=== PATIENT | male | born 1975 | race Caucasian/White ===

== ENCOUNTER 2021-07-24 11:17 | Inpatient (IN) | payer OTHER ==
[~2021-07-24] VITALS: Ht 180.3 cm; Wt 145.1 kg
[2021-07-24 11:22] VITALS: BP 124/68
[2021-07-24 13:10] LABS: ABSOLUTE LYMPHOCYTES 1.2 thou/uL (0.8-5.3); ABSOLUTE MONOCYTES 0.8 thou/uL (0.0-1.2); ABSOLUTE NEUTROPHILS 3.2 thou/uL (1.6-8.1); BASOPHILS 0.7 %; HEMATOCRIT 50.8 % (42.0-52.0); HEMOGLOBIN 17.2 gm/dL (14.0-18.0); LYMPHOCYTES 23.1 %; MCH 29.9 pg (26.0-34.0); MCHC 33.9 g/dL (28.0-37.0); MCV 88.3 fL (80.0-100.0); MONOCYTES 15.3 %; MPV 8.2 fl. (7.2-11.1); NUCLEATED RBCS 0 /100WBC; PLATELET COUNT* 152 thou/uL (150-400); POLYS 60.9 %; RBC 5.75 mil/uL (4.50-6.00); RDW-CV 14.2 % (10.5-14.5); WBC 5.3 thou/uL (4.0-11.0)
[2021-07-24 13:15] LABS: CALCIUM 7.7 mg/dL (8.5-10.1); CREATININE 0.9 mg/dL (0.6-1.3); POTASSIUM 4.2 mmol/L (3.5-5.1)
--- NOTE | 2021-07-24 14:20 | NUR ---
Dr. Goodwin ask for an RT ambulation oxygen saturation test. Patient was ambulated approximately 50 feet. Pt. became dizzy and oxygen saturation dropped to 81%..
--- NOTE | 2021-07-24 14:21 | EKG ---
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 : 1975 Requested By: Sarwat Goodwin Order Number: [id number] MD: Sp Sarmiento Measurements Intervals Aniwa Rate: 83 P: 74 OR: 166 QRS: 93 QRSD: 96 T: 51 QT: 355 QTc: 418 Interpretive Statements Sinus rhythm Left atrial enlargement Borderline right axis deviation ST elev, probable normal early repol pattern Baseline wander in lead(s) II,III,aVL,aVF No previous ECG available for comparison Electronically Signed On 07-24-2021 14:20:49 [employer] by Sp Sarmiento [email or web address] <ELECTRONICALLY SIGNED> By: Sp Sarmiento MD, [facility] 07/24/21 1420 1302 1302 Sp Sarmiento MD, [facility] /EPI
[2021-07-24 20:24] VITALS: BP 132/76
[2021-07-25] VITALS (7 sets, daily range): BP systolic 108–140; BP diastolic 38–76
[2021-07-25 09:13] LABS: BE 0.2 mmol/L (-2 to +3); PO2 62.5 mmHg (75.0-100.0); pH 7.389 (7.340-7.450)
[2021-07-25 09:58] LABS: ABSOLUTE MONOCYTES 0.3 thou/uL (0.0-1.2); ABSOLUTE NEUTROPHILS 4.4 thou/uL (1.6-8.1); BASOPHILS 0.3 %; HEMATOCRIT 50.3 % (42.0-52.0); HEMOGLOBIN 16.9 gm/dL (14.0-18.0); LYMPHOCYTES 16.9 %; MCH 30.1 pg (26.0-34.0); MCHC 33.7 g/dL (28.0-37.0); MCV 89.3 fL (80.0-100.0); MONOCYTES 5.4 %; MPV 8.1 fl. (7.2-11.1); NUCLEATED RBCS 0 /100WBC; PLATELET COUNT* 178 thou/uL (150-400); POLYS 77.4 %; RBC 5.63 mil/uL (4.50-6.00); RDW-CV 14.2 % (10.5-14.5); WBC 5.7 thou/uL (4.0-11.0)
[2021-07-25 10:02] LABS: ALBUMIN 2.6 g/dL (3.4-5.0); CALCIUM 7.5 mg/dL (8.5-10.1); CREATININE 0.8 mg/dL (0.6-1.3); MAGNESIUM 2.1 mg/dL (1.8-2.4); PHOSPHORUS* 3.3 mg/dL (2.5-4.9); POTASSIUM 4.1 mmol/L (3.5-5.1); TOTAL BILIRUBIN 0.3 mg/dL (<0.1-1.0); TOTAL PROTEIN 6.8 g/dL (6.4-8.2)
[2021-07-25 10:06] LABS: PROTIME 10.3 Seconds (9.20-11.50)
[2021-07-26 00:01] VITALS: BP 116/67
--- NOTE | 2021-07-26 03:10 | NUR ---
ASSUMED CARE OF PT AT 2024. PT IS ALERT AND ORIENTED. VSS. PERRLA. NO COMPLAINTS OF PAIN. PT WAS ON 6 LITERS O2. RESPIRATIONS ARE LABORED. PT IS NOW ON BIPAP AND TOLERATING WELL. PT IS IN SINUS RYTHM ON THE TELEMETRY. PT IS RESTING COMFORTABLY IN BED. RESPIRATIONS ARE EVEN AND NONLABORED. WILL CONTINUE TO MONITOR PT.
[2021-07-26 04:00] VITALS: BP 114/60
[2021-07-26 05:46] LABS: ABSOLUTE LYMPHOCYTES 0.9 thou/uL (0.8-5.3); ABSOLUTE MONOCYTES 0.5 thou/uL (0.0-1.2); ABSOLUTE NEUTROPHILS 6.7 thou/uL (1.6-8.1); BASOPHILS 0.2 %; HEMATOCRIT 50.4 % (42.0-52.0); HEMOGLOBIN 16.7 gm/dL (14.0-18.0); LYMPHOCYTES 10.8 %; MCH 29.9 pg (26.0-34.0); MCHC 33.2 g/dL (28.0-37.0); MCV 90.2 fL (80.0-100.0); MPV 8.6 fl. (7.2-11.1); NUCLEATED RBCS 0 /100WBC; PLATELET COUNT* 206 thou/uL (150-400); RBC 5.59 mil/uL (4.50-6.00); RDW-CV 14.2 % (10.5-14.5)
[2021-07-26 06:06] LABS: ALBUMIN 2.6 g/dL (3.4-5.0); CALCIUM 7.8 mg/dL (8.5-10.1); CREATININE 0.8 mg/dL (0.6-1.3); MAGNESIUM 2.3 mg/dL (1.8-2.4); PHOSPHORUS* 3.6 mg/dL (2.5-4.9); POTASSIUM 3.7 mmol/L (3.5-5.1); TOTAL BILIRUBIN 0.3 mg/dL (<0.1-1.0); TOTAL PROTEIN 6.8 g/dL (6.4-8.2)
[2021-07-26 06:09] LABS: LIPASE 140 U/L (73-393); TRIGLYCERIDE 64 mg/dL (<150)
[2021-07-26 08:00] VITALS: BP 129/64
[2021-07-26 09:29] LABS: BE 2.7 mmol/L (-2 to +3); PCO2 40.7 mmHg (35.0-45.0); pH 7.441 (7.340-7.450)
[2021-07-26 09:31] LABS: PO2 55.8 mmHg (75.0-100.0)
[2021-07-26 12:00] VITALS: BP 129/63
--- NOTE | 2021-07-26 13:25 | CON ---
[address] [address] CONSULTATION Name: YOGESH MARTINEZ Room: [address] IN [facility].#: [id number] Admission: 07/24/21 Attend Phys: Stephany Monique Discharge: Date of : 73 Report #: [id number] THIS REPORT FOR: cc: VENICE - No family physician/PCP FAM - No family physician/PCP Conner Oleary MD ~ DATE OF CONSULTATION: 07/25/2021 REQUESTING PHYSICIAN: Dr. Bernard. INDICATION FOR CONSULTATION: Acute hypoxemic respiratory failure secondary to COVID-19. HISTORY OF PRESENT ILLNESS: A 45-year-old gentleman with past medical history is as mentioned below. He is an active smoker. He says he drinks heavily over the weekends; however, does not drink alcohol during the week. He appears to have previously undiagnosed COPD as well as obstructive sleep apnea, both of these diagnoses, however are not on the chart. He has not been vaccinated for COVID-19. The patient has now presented with body aches as well as shortness of breath for about 5 days' duration. He also had a cough, sputum; however, has been clear. He has had some chest pain with respiration and coughing. There is mild swelling of lower extremities. He does not have upper respiratory complaints. REVIEW OF SYSTEMS: For 12 points is negative except as mentioned above. PAST MEDICAL HISTORY: Obesity, body mass index is 45. SOCIAL HISTORY: He is an active smoker, smokes a pack or more a day. Still has a history of heavy alcohol intake. He states he drinks only once on Saturdays. He does not drink alcohol the rest of the week. Also, has a history of THC use. ALLERGIES: No known drug allergies. FAMILY HISTORY: No pertinent family history. CURRENT MEDICATIONS: List in [employer] reviewed. HOME MEDICATIONS: No known medications. PHYSICAL EXAMINATION: GENERAL: He is alert, awake and oriented. VITAL SIGNS: In the record. These are reviewed. He is currently on 6 liters nasal cannula. Body mass index is 45[place] [address] CONSULTATION Name: YOGESH MARTINEZ Room: [address] IN [facility]#: [id number] Admission: 07/24/21 Attend Phys: Stephany Monique Discharge: Date of : 73 Report #: [id number] HEENT: Head is normocephalic and atraumatic. Pupils are equal and reactive. There is no throat erythema. He has a narrow airway. NECK: Does not show raised JVP, asymmetry, mass or lymph nodes. CHEST: Symmetrical expansion on inspection and palpation. On auscultation, breath sounds are bilaterally equal, decreased. Expirations are prolonged. There were significant expiratory wheezes heard bilaterally. HEART: Regular. There is no murmur. ABDOMEN: Soft and nontender. EXTREMITIES: Lower extremities, 1+ edema, no calf tenderness. SKIN: Dry and intact. NEUROLOGIC: Moves all extremities bilaterally equally and spontaneously with no focal deficit identified. LABORATORY DATA: Chest x-ray and CTA chest are in [facility] and these are reviewed. ASSESSMENT AND PLAN: 1. Acute hypoxemic respiratory failure secondary to COVID-19. He appears to have underlying obstructive sleep apnea. Therefore, I would go ahead and recommend BiPAP while asleep. Avoid supine sleep, prone position is preferred. 2. Suspected COVID-19. He is on dexamethasone, we will continue. See further discussion regarding the steroid dose as below. He also received Actemra. I also agree. Will also check Influenza swab and viral respiratory panel with it and is on remdesivir. I also agree with the same. We will follow LFTs. 3. Chronic obstructive pulmonary disease exacerbation/bronchospasm. He does appear to be actively bronchospastic. I ordered a dose of Solu-Medrol earlier. It does not appear that it was administered. I would avoid and reorder. He is on 10 mg b.i.d., dexamethasone. We will continue the same. Ordered DuoNeb q.i.d. in addition to p.r.n. albuterol. 4. Pulmonary infiltrates. Primarily, these appear to be secondary to a viral infection, likely COVID-19; however, continuing broad-spectrum antibiotics to cover for secondary bacterial infections appears to be reasonable. 5. Fluid overload. I gave him a dose of Lasix today. We will reassess tomorrow and consider more Lasix. He does appear to have fluid overload. 6. Morbid obesity/suspected obstructive sleep apnea. See discussion above. 7. Deep vein thrombosis prophylaxis. I will increase his Lovenox dose to intermediate dose. 8. Gastrointestinal prophylaxis. He is on Protonix. 9. Clostridium difficile prophylaxis. Lactinex. 10. History of alcohol use. Considering that both anxiety secondary to alcohol withdrawal as well as worsening respiratory failure would have similar symptoms, [facility] [place] [facility] [address] [place] [address] CONSULTATION Name: YOGESH MARTINEZ Room: [address] IN M.R.#: [id number] Admission: 07/24/21 Attend Phys: Stephany Monique Discharge: Date of : 73 Report #: [id number] I recommend against using CIWA protocol for this patient. Also, note that if his statement that he only drinks once a week is correct, then he may not withdraw from alcohol regardless cautious use of some Ativan will be reasonable. I did order thiamine and folate for him as well. 11. History of smoking. I did not start a nicotine patch at this time as it is late in the day and it is a stimulant. If needed, then starting a nicotine patch in the morning to reduce nicotine craving will be reasonable. 12. Hyperglycemia. Insulin sliding scale. Thanks for this consultation. <ELECTRONICALLY SIGNED> By: Conner Oleary MD 07/26/21 1325 31 [id number] Oleary MD /nt
[2021-07-26 16:11] VITALS: BP 123/61
[2021-07-26 20:00] VITALS: BP 130/61
[2021-07-27] VITALS: BP 116/56
[2021-07-27 04:00] VITALS: BP 99/45
[2021-07-27 04:52] LABS: HEMATOCRIT 50.1 % (42.0-52.0); HEMOGLOBIN 16.4 gm/dL (14.0-18.0); MCH 29.8 pg (26.0-34.0); MCHC 32.8 g/dL (28.0-37.0); MPV 8.1 fl. (7.2-11.1); NUCLEATED RBCS 0 /100WBC; PLATELET COUNT* 247 thou/uL (150-400); RBC 5.51 mil/uL (4.50-6.00); RDW-CV 14.2 % (10.5-14.5); WBC 15.2 thou/uL (4.0-11.0)
[2021-07-27 05:15] LABS: INFLUENZA A ANTIGEN Negative (Negative); INFLUENZA B ANTIGEN Negative (Negative)
[2021-07-27 05:19] LABS: ALBUMIN 2.8 g/dL (3.4-5.0); CALCIUM 7.9 mg/dL (8.5-10.1); CREATININE 0.8 mg/dL (0.6-1.3); MAGNESIUM 2.4 mg/dL (1.8-2.4); POTASSIUM 4.1 mmol/L (3.5-5.1); TOTAL BILIRUBIN 0.3 mg/dL (<0.1-1.0); TOTAL PROTEIN 6.3 g/dL (6.4-8.2)
--- NOTE | 2021-07-27 06:28 | NUR ---
ASSUMED CARE OF PT AFTER REPORT AT 1930. PT A&OX4. VSS. PHYSICAL ASSESSMENT COMPLETED AND CHARTED. PT ON O2 AT 7L NC/BIPAP AT HS-REFUSED BIPAP LAST NIGHT. PT TRACING SR ON TELE. PT UPADLIB TO RESTROOM. RVP, FLU SWAB & UA SENT TO LAB. DENIES PAIN. PT ABLE TO SLEEP WELL ON BED. CALL LIGHT WITHIN REACH.
[2021-07-27 07:54] LABS: ABSOLUTE LYMPHOCYTES 0.2 thou/uL (0.8-5.3); ABSOLUTE MONOCYTES 0.2 thou/uL (0.0-1.2); ABSOLUTE NEUTROPHILS 14.9 thou/uL (1.6-8.1); PLATELET ESTIMATE ADEQUATE
[2021-07-27 08:06] VITALS: BP 131/71
--- NOTE | 2021-07-27 12:58 | NUR ---
Nutrition: Pt admitted to COVID unit. H/o DM, COPD, tobacco use, ETOH. Consult received for DM. Pt on regular diet - RD will add CHO count to diet order. Wt: 320#. Meds: insulin, vit C, folic acid, thiamine. +BM yday. Labs: BG 157-217, alb 2.8, prealb 14.1. Excessive CHO intake R/T diet order AEB no CHO restriction on diet order, labs above. GOALS: good intake of CHO controlled diet, tight BG control. Consider mild nutrition risk at this time.
--- NOTE | 2021-07-27 14:02 | 2DMMODE ---
[place] [address] 2 D/M-MODE ECHOCARDIOGRAM Name: YOGESH MARTINEZ Room: [address] ADM IN Stephany.Maninder.#: [id number] Admission: 07/24/21 Attend Phys: Xavier Xiao Discharge: Date of : 73 Date of Service: 07/27/21 1401 Report #: [id number] THIS REPORT FOR: cc: VENICE - No family physician/PCP VENICE - No family physician/PCP Chico Childs MD [facility] ~ APPROVED REPORT Study performed: 07/27/2021 10:08:00 EXAM: Comprehensive 2D, Doppler, and color-flow Echocardiogram Patient Location: In-Patient Room #: [facility] Status: routine BSA: 2.58 HR: 66 bpm BP: 131/71 mmHg Rhythm: NSR Other Information Technically limited study due to body habitus, poor endocardial definition. Indications Dyspnea Echo Enhancing Agent Indication: Endocardial border delineation Agent(s) / Amount(s) Used: Optison 3 cc 2D Dimensions IVSd: 12.92 (7-11mm) LVOT Diam: 21.84 (18-24mm) LVDd: 57.35 mm PWd: 12.23 (7-11mm) Ascending Ao: 36.81 (22-36mm) LVDs: 31.19 (25-40mm) Aortic Root: 36.42 mm Volumes Left Atrial Volume (Systole) LA ESV Index: 27.40 mL/m2 Aortic Valve AoV Peak Perfecto.: 1.78 m/s AO Peak Gr.: 12.74 mmHg LVOT Max P.[address] [address] 2 D/M-MODE ECHOCARDIOGRAM Name: YOGESH MARTINEZ Room: [address] IN [facility]#: [id number] Admission: 07/24/21 Attend Phys: Xavier Xiao Discharge: Date of : 73 Date of Service: 07/27/21 1401 Report #: [id number] Mean Gr.: 7.41 mmHg LVOT Mean P.14 mmHg LVOT Max V: 1.40 m/s AO V2 VTI: 37.75 cm LVOT Mean V: 0.94 m/s NORMA (VTI): 3.21 cm2 LVOT V1 VTI: 32.35 cm Mitral Valve E/A Ratio: 1.27 MV Decel. Time: 263.14 ms MV E Max Perfecto.: 1.08 m/s MV PHT: 76.31 ms MVA (PHT): 2.88 cm2 TDI E/Lateral E': 8.31 E/Medial E': 7.71 Medial E' Perfecto.: 0.14 m/s Lateral E' Perfecto.: 0.13 m/s Pulmonary Valve PV Peak Perfecto.: 1.13 m/s PV Peak Gr.: 5.09 mmHg Tricuspid Valve RAP Estimate: 5.00 mmHg TR Peak Gr.: 26.73 mmHg RVSP: 31.00 mmHg PA Pressure: 31.00 mmHg Left Ventricle The left ventricle is normal size. There is normal LV segmental wall motion. Borderline concentric left ventricular hypertrophy. Left ventricular systolic function is normal. The left ventricular ejection fraction is within the normal range. LVEF is 55-60%. The left ventricular diastolic function is normal. Right Ventricle The right ventricle is normal size. The right ventricular systolic function is normal. Atria The left atrium size is normal. The right atrium size is normal. Aortic Valve Mild aortic valve sclerosis. No aortic regurgitation is present. There is no aortic valvular stenosis. Mitral Valve The mitral valve is normal in structure. [place] [address] 2 D/M-MODE ECHOCARDIOGRAM Name: YOGESH MARTINEZ Room: [address] IN [facility]#: [id number] Admission: 07/24/21 Attend Phys: Xavier Xiao Discharge: Date of : 73 Date of Service: 07/27/21 1401 Report #: [id number] No evidence of mitral valve stenosis. Tricuspid Valve The tricuspid valve is normal in structure. Mild tricuspid regurgitation. Mild pulmonary hypertension. Pulmonic Valve The pulmonary valve is normal in structure. There is no pulmonic valvular regurgitation. Great Vessels The aortic root is normal in size. IVC is normal in size and collapses >50% with inspiration. Pericardium There is no pericardial effusion. <Conclusion> The left ventricle is normal size. Borderline concentric left ventricular hypertrophy. Left ventricular systolic function is normal. The left ventricular ejection fraction is within the normal range. LVEF is 55-60%. The right ventricle is normal size. The left atrium size is normal. Mild aortic valve sclerosis. No aortic regurgitation is present. There is no aortic valvular stenosis. The mitral valve is normal in structure. The tricuspid valve is normal in structure. Mild tricuspid regurgitation. Mild pulmonary hypertension. IVC is normal in size and collapses >50% with inspiration. There is no pericardial effusion. There is normal LV segmental wall motion. <ELECTRONICALLY SIGNED> By: Chico Childs MD, FACC 07/27/21 1401 1401 140 Chico Childs MD, FACC /INF
[2021-07-27 15:30] VITALS: BP 129/68
--- NOTE | 2021-07-27 16:26 | NUR ---
CM ASSESSMENT ASSESSMENT COMPLETED WITH PT SISTER CAROLYN [phone]. PT LIVES IN HOUSE WITH TEENAGE CHILDREN. PT IND WITH ADLS. PT DOES NOT USE ANY DME OR HOME O2. PT HAS NO HX OF SNF, ARU, OR HH. CM TO FOLLOW FOR DC NEEDS. PT ON 7L O2.
--- NOTE | 2021-07-27 18:29 | NUR ---
P's O2 titrated down from 7L to 4L per NC. VSS. Recliner brought into room and pt up in recliner since noon. States much more comfortable than the bed. Reports he is hopeful of being discharged soon. Will continue to monitor.
[2021-07-27 20:00] VITALS: BP 125/62
[2021-07-28] VITALS (7 sets, daily range): BP systolic 118–135; BP diastolic 56–91
--- NOTE | 2021-07-28 07:33 | NUR ---
ASSUMED CARE OF PT AFTER REPORT AT 1930. PT A&OX4. VSS. PHYSICAL ASSESSMENT COMPLETED AND CHARTED. PT ON O2 AT 4LNC/BIPAP 60% AT HS. PT TRACING SR ON TELE. PT DENIES PAIN. ABLE TO SLEEP WELL ON BED. CALL LIGHT WITHIN REACH.
--- NOTE | 2021-07-28 11:00 | NUR ---
the patient is alert. call light within reach. denies cp or sob.
[2021-07-28] MEDS ORDERED: DECADRON6 MG PO (16:11)
[2021-07-28] MEDS ORDERED: CEFDINIR300 MG PO (16:11)
--- NOTE | 2021-07-28 17:34 | NUR ---
CM FOLLOWUP PT MED CLEAR FOR DC HOME WITH O2 PROVIDED BY [facility] [phone].
--- NOTE | 2021-07-28 18:01 | NUR ---
the patient was wheeled to the private car. the patieint is alert. denies sob or cp.
[2021-07-29 15:08] LABS: MYCOPLASMA PNEUMONIA IgG 682 U/mL (0-99); MYCOPLASMA PNEUMONIA IgM <770 U/mL (0-769)
== END 2021-07-28 17:50 | disposition home or self-care (01) | DRG 177 ==
LOC: M.ERS 11:17 → M.TBA-ER 16:26 → M.ORTHSURG 16:26
PROVIDERS: Emergency Medicine; Internal Medicine; Internal Medicine Critical Care Medicine; ADMIT Internal Medicine; ATTEND Internal Medicine
PROC: 5A0935A Assistance with Respiratory Ventilation, Less than 24 Consecutive Hours, High Flow/Velocity Cannula (ICD-10-PCS; 2021-07-25)
PROC: 5A09357 Assistance with Respiratory Ventilation, Less than 24 Consecutive Hours, Continuous Positive Airway Pressure (ICD-10-PCS; 2021-07-25)
PROC: XW033E5 Introduction of Remdesivir Anti-infective into Peripheral Vein, Percutaneous Approach, New Technology Group 5 (ICD-10-PCS; principal; 2021-07-26)
PROC: 05HC33Z Insertion of Infusion Device into Left Basilic Vein, Percutaneous Approach (ICD-10-PCS; 2021-07-26)
PROC: 5A0935A Assistance with Respiratory Ventilation, Less than 24 Consecutive Hours, High Flow/Velocity Cannula (ICD-10-PCS; 2021-07-26)
PROC: 5A09357 Assistance with Respiratory Ventilation, Less than 24 Consecutive Hours, Continuous Positive Airway Pressure (ICD-10-PCS; 2021-07-26)
PROC: 5A09357 Assistance with Respiratory Ventilation, Less than 24 Consecutive Hours, Continuous Positive Airway Pressure (ICD-10-PCS; 2021-07-28)
DX: U07.1 COVID-19 (principal); J96.01 Acute respiratory failure with hypoxia; J12.82 Pneumonia due to coronavirus disease 2019; J44.0 Chronic obstructive pulmonary disease with (acute) lower respiratory infection; J44.1 Chronic obstructive pulmonary disease with (acute) exacerbation; E87.1 Hypo-osmolality and hyponatremia; Z68.41 Body mass index [BMI] 40.0-44.9, adult; F17.210 Nicotine dependence, cigarettes, uncomplicated; E66.01 Morbid (severe) obesity due to excess calories; E87.70 Fluid overload, unspecified; R73.9 Hyperglycemia, unspecified